=== PATIENT | male | born 1940 | race Caucasian/White ===

== ENCOUNTER → 2016-10-31 | Outpatient (CLI) | payer OTHER | LOC: BRMIMAGING 10:43 | PROVIDERS: ATTEND Internal Medicine Rheumatology | DX: M51.36 Other intervertebral disc degeneration, lumbar region (principal); M35.3 Polymyalgia rheumatica | CPT/HCPCS: 72100-PO; 73521-PO ==

== ENCOUNTER → 2018-05-19 | Outpatient (CLI) | payer OTHER | LOC: BRMIMAGING 14:52 | PROVIDERS: ATTEND Internal Medicine Rheumatology | DX: Z13.820 Encounter for screening for osteoporosis (principal); M85.89 Other specified disorders of bone density and structure, multiple sites ==